=== PATIENT | female | born 2000 | race Caucasian/White ===

== ENCOUNTER 2020-10-11 15:09 | Emergency (ER) | payer MEDICAID ==
[2020-10-11 15:37] LABS: BILIRUBIN,URINE NEGATIVE (NEGATIVE); CLARITY,URINE CLEAR (CLEAR); GLUCOSE, URINE (UA) NEGATIVE (NEGATIVE); KETONES,URINE (UA) NEGATIVE (NEGATIVE); LEUKOCYTE ESTERASE, URINE SMALL (NEGATIVE); NITRITE,URINE POSITIVE (NEGATIVE); OCCULT BLOOD,URINE NEGATIVE (NEGATIVE); PROTEIN,URINE NEGATIVE (NEGATIVE); UROBILINOGEN,URINE 0.2 (NORMAL) E.U./dL (NORMAL)
[2020-10-11 15:43] LABS: BACTERIA,URINE Moderate /HPF (None Seen); RBC,URINE None Seen /HPF (0-5); SQUAMOUS EPITHELIAL CELL,UR RARE Squamous (<= Few)
--- NOTE | 2020-10-11 15:44 | ED Physician Documentation ---
History of Present Illness - Stated complaint Stated Complaint: CRAMPING,SOA,ROLDAN - Chief complaint Chief Complaint: Abd Pain - History obtained from History obtained from: Patient - History of Present Illness Timing: Today Pain level max: 5 Pain level now: 3 - Additonal information Additional information: 20-year-old female presents to the emergency department with lower abdominal pelvic cramping, worse on the left side. She states that she is about 6 to 7 weeks . Has her for a first OB appointment at the end of the week. She has increasing cramping. No bleeding. 2 para 0. Miscarried several years ago. No fevers. No chills. No back pain. No other abdominal pain. She does have a history of epilepsy, but is currently not on any medications. Nothing makes it better or worse. Review of Systems Constitutional: denies: Fever, Chills Respiratory: denies: Cough GI: denies: Vomiting, Diarrhea : denies: Dysuria, Frequency, Hesitancy Skin: denies: Rash Musculoskeletal: denies: Neck pain, Back pain Neurologic: denies: Headache PD PAST MEDICAL HISTORY - Past Medical History Past Medical History: Yes Neuro: Seizure disorder - Present Medications Home Medications: Ambulatory Orders Medication Instructions Recorded Confirmed Cefpodoxime Proxetil [Vantin] 100 mg PO Q12H #10 tablet 10/11/20 - Allergies Allergies/Adverse Reactions: Allergies Allergy/AdvReac Type Severity Reaction Status Date / Time No Known Drug Allergies Allergy Verified 10/11/20 15:24 PD ED PE NORMAL - Vitals Vital signs reviewed: Yes - General General: Alert and oriented X 3, No acute distress - HEENT HEENT: Atraumatic, PERRL, Moist mucous membranes - Neck Neck: Supple, no meningeal sign - Cardiac Cardiac: RRR - Respiratory Respiratory: No respiratory distress, Clear bilaterally - Abdomen Abdomen: Soft, Non tender, Non distended - Female Female : Pt declined - Back Back: No CVA TTP - Derm Derm: Warm and dry, No rash - Extremities Extremities: No edema, No calf tenderness / cord - Neuro Neuro: Alert and oriented X 3 - Psych Psych: Normal mood, Normal affect Results - Vitals Vitals: Vital Signs - 24 hr 10/11/20 10/11/20 10/11/20 15:20 16:24 17:27 Temperature 36.4 C L 37.1 C 36.7 C Heart Rate 76 74 84 Respiratory 16 20 18 Rate Blood Pressure 127/68 107/76 108/60 O2 Saturation 100 100 100 Oxygen O2 Source Room air - Labs Labs: Laboratory Tests 10/11/20 10/11/20 10/11/20 15:25 15:35 15:35 WBC 12.1 H RBC 4.48 Hgb 13.8 Hct 41.1 MCV 91.7 MCH 30.8 MCHC 33.6 RDW 12.3 Plt Count 345 MPV 9.5 Neut # (Auto) 8.0 H Lymph # (Auto) 3.3 [place] # (Auto) 0.7 Eos # (Auto) 0.1 Baso # (Auto) 0.1 Absolute Nucleated RBC 0.00 Nucleated RBC % 0.0 Sodium Potassium Chloride Carbon Dioxide Anion Gap BUN Creatinine Estimated GFR (MDRD) Glucose Calcium Total Bilirubin AST ALT Alkaline Phosphatase Total Protein Albumin Globulin Albumin/Globulin Ratio Lipase HCG, Quant Urine Color YELLOW Urine Clarity CLEAR Urine pH 7.0 Ur Specific [place] 1.020 Urine Protein NEGATIVE Urine Glucose (UA) NEGATIVE Urine Ketones NEGATIVE Urine Occult Blood NEGATIVE Urine Nitrite POSITIVE H Urine Bilirubin NEGATIVE Urine Urobilinogen 0.2 (NORMAL) Ur Leukocyte Esterase SMALL H Urine RBC None Seen Urine WBC 0-3 Ur Squamous Epith Cells RARE Squamous Urine Bacteria Moderate H Ur Microscopic Review INDICATED Urine Culture Comments INDICATED Blood Type A POSITIVE 10/11/20 10/11/20 15:35 15:35 WBC RBC Hgb Hct MCV MCH MCHC RDW Plt Count MPV Neut # (Auto) Lymph # (Auto) [place] # (Auto) Eos # (Auto) Baso # (Auto) Absolute Nucleated RBC Nucleated RBC % Sodium 138 Potassium 3.6 Chloride 102 Carbon Dioxide 27 Anion Gap 9.0 BUN 11 Creatinine 0.7 Estimated GFR (MDRD) 106 Glucose 87 Calcium 9.5 Total Bilirubin 0.4 AST 15 ALT 25 Alkaline Phosphatase 55 Total Protein 7.3 Albumin 4.0 Globulin 3.3 Albumin/Globulin Ratio 1.2 Lipase 28 HCG, Quant 40637.00 Urine Color Urine Clarity Urine pH Ur Specific [place] Urine Protein Urine Glucose (UA) Urine Ketones Urine Occult Blood Urine Nitrite Urine Bilirubin Urine Urobilinogen Ur Leukocyte Esterase Urine RBC Urine WBC Ur Squamous Epith Cells Urine Bacteria Ur Microscopic Review Urine Culture Comments Blood Type - Rads (name of study) OB US Radiology: Prelim report reviewed, EMP read contemporaneously, See rad report PD MEDICAL DECISION MAKING - ED course Complexity details: reviewed results, re-evaluated patient, considered differential, d/w patient ED course: 20-year-old female presents to the emergency department with lower abdominal pain. Approximately 6 weeks . She is not having vaginal bleeding. Does have a UTI and we will treat her for this. Has a single living IUP. Has an appoint with OB on Sunday. No other acute findings on laboratory testing. Blood type a positive. Patient counseled regarding signs and symptoms for which I believe and urgent re-evaluation would be necessary. Patient with good understanding of and agreement to plan and is comfortable going home at this time This document was made in part using voice recognition software. While efforts are made to proofread this document, sound alike and grammatical errors may occur. IMPRESSION: 1. Single living intrauterine with sinus gestational age of 6 weeks 1 day corresponding to ultrasound HOLDEN of 06/05/2021. 2. Small right corpus luteal cyst. 3. Small subchorionic bleed. Departure - Departure Disposition: 01 Home, Self Care Clinical Impression: Qualifiers: Weeks of gestation: less than 8 weeks Qualified Code(s): Z3A.01 - Less than 8 weeks gestation of UTI (urinary tract infection) Qualifiers: Urinary tract infection type: acute cystitis Hematuria presence: without hematuria Qualified Code(s): N30.00 - Acute cystitis without hematuria Condition: Good Instructions: ED Care, ED UTI Cystitis Female Follow-Up: your,OB on Sunday [Other] Prescriptions: Cefpodoxime Proxetil [Vantin] 100 mg PO Q12H #10 tablet Comments: Take all antibiotics until gone. Return if you worsen. Your hCG is 55,700 today. This can be tracked and followed with your doctor. Your ultrasound does not show any acute abnormalities. You are around 6 weeks currently. Discharge Date/Time: 10/11/20 17:31
[2020-10-11 15:45] LABS: BASOPHILS # (AUTO) 0.1 10^3/uL (0.0-0.1); BASOPHILS % (AUTO) 0.5 %; EOSINOPHILS # (AUTO) 0.1 10^3/uL (0.0-0.7); EOSINOPHILS % (AUTO) 0.5 %; HGB - HEMOGLOBIN 13.8 g/dL (12.0-16.0); LYMPHOCYTES # (AUTO) 3.3 10^3/uL (1.5-3.5); LYMPHOCYTES % (AUTO) 27.1 %; MEAN CORPUSCULAR HEMOGLOBIN 30.8 pg (27.0-31.0); MEAN CORPUSCULAR HGB CONC 33.6 g/dL (32.0-36.0); MEAN CORPUSCULAR VOLUME 91.7 fL (81.0-99.0); MEAN PLATELET VOLUME 9.5 fL (7.9-10.8); MONOCYTES # (AUTO) 0.7 10^3/uL (0.0-1.0); MONOCYTES % (AUTO) 5.4 %; NEUTROPHILS % (AUTO) 66.3 %; PLT - PLATELET COUNT 345 10^3/uL (130-450); RED BLOOD COUNT 4.48 10^6/uL (4.20-5.40); RED CELL DISTRIBUTION WIDTH 12.3 % (12.0-15.0); WHITE BLOOD COUNT 12.1 x10^3/uL (4.8-10.8)
[2020-10-11 15:59] LABS: ALBUMIN/GLOBULIN RATIO 1.2 (1.0-2.2); BILIRUBIN,TOTAL 0.4 mg/dL (0.2-1.0); CALCIUM 9.5 mg/dL (8.5-10.3); CREATININE 0.7 mg/dL (0.4-1.0); TOTAL PROTEIN 7.3 g/dL (6.7-8.2)
[2020-10-11 17:28] VITALS: BP 108/60
--- NOTE | 2020-10-11 17:52 | Ultrasound Report ---
PROCEDURE: OB First Trimester w/TV INDICATIONS: pelvic pain, 6 weeks preg OUTSIDE/PRIOR DATING DATA: Last menstrual period (LMP): Not known. LMP-based estimated date of delivery (HOLDEN): Not applicable. First dating scan (date and location): 10/11/2020. Estimated date of delivery (HOLDEN) from first dating scan: 06/05/2021. TECHNIQUE: Real-time scanning was performed of the fetus and maternal pelvic organs, with image documentation. Endovaginal scanning was also performed to better visualize the fetus and maternal ovaries. COMPARISON: None FINDINGS: Embryo: Single living intrauterine gestation is identified. pole and yolk sac are identified. [place]-rump length measures 0.4 cm corresponding to ultrasound estimated gestational age of 6 weeks 1 day. heart rate measured at 121 bpm. Small 0.7 x 0.4 x 0.7 cm subchorionic/riley-implantation of bleed identified. Measurement variability in dating: +/- 4 weeks by LMP, +/- 7 days by mean sac diameter (use before 6 weeks gestation if crown-rump length not able to be measured), +/- 5 days by crown-rump length (6-12 weeks gestation). Maternal organs: Maternal cervix is closed. Small right corpus luteal cyst. Left ovary is sonographic ally normal. IMPRESSION: 1. Single living intrauterine with sinus gestational age of 6 weeks 1 day corresponding to ultrasound HOLDEN of 06/05/2021. 2. Small right corpus luteal cyst. 3. Small subchorionic bleed. Reviewed by: Vandana Monteiro MD, PhD on 10/11/2020 4:50 PM AKST Approved by: Vandana Monteiro MD, PhD on 10/11/2020 4:50 PM AKST Station ID: [id number]
== END 2020-10-11 17:31 | disposition home or self-care (01) ==
LOC: ED 15:09
DX: O23.11 Infections of bladder in pregnancy, first trimester (principal); Z3A.01 Less than 8 weeks gestation of pregnancy
CPT/HCPCS: 36415; 80053; 81001; 81003; 83690; 84702; 85025; 86900; 86901; 87077; 87086; 87181; 99284

== ENCOUNTER 2020-10-21 16:46 | Outpatient (CLI) | payer MEDICAID ==
--- NOTE | 2020-10-22 10:47 | Ultrasound Report ---
PROCEDURE: OB First Trimester w/TV INDICATIONS: SUPERVISION OF NORMAL OUTSIDE/PRIOR DATING DATA: Last menstrual period (LMP): 10/08/2019. LMP-based estimated date of delivery (HOLDEN): 05/15/2021. First dating scan (date and location): 10/11/2020. Estimated date of delivery (HOLDEN) from first dating scan: 06/05/2021. It is noted 06/05/2021 is consider ed the due date by the ordering provider.. TECHNIQUE: Real-time scanning was performed of the fetus and maternal pelvic organs, with image documentation. Endovaginal scanning was also performed to better visualize the fetus and maternal ovaries. COMPARISON: OB ultrasound 10/11/2020 FINDINGS: Embryo: Single living is identified with crown-rump length measuring 1.3 cm corresponding to 7 weeks 4 days compared to 7 weeks 4 days from initial ultrasound.. Heart rate is identified at 16 4 bpm. Small focus of subchorionic hemorrhage is noted measuring 1.4 x 1.0 cm. Measurement variability in dating: +/- 4 weeks by LMP, +/- 7 days by mean sac diameter (use before 6 weeks gestation if crown-rump length not able to be measured), +/- 5 days by crown-rump length (6-12 weeks gestation). Maternal organs: Ovaries demonstrate a right corpus luteal cyst. IMPRESSION: 1. Single live intrauterine measuring 7 weeks 4 days. 2. Small subchorionic hemorrhage. Reviewed by: Mable Cramer MD on 10/22/2020 10:46 AM PST Approved by: Mable Cramer MD on 10/22/2020 10:46 AM PST Station ID: [id number]
== END 2020-10-21 16:47 | disposition home or self-care (01) ==
LOC: DI 16:46
PROVIDERS: ATTEND Nurse Practitioner Obstetrics & Gynecology
DX: O20.8 Other hemorrhage in early pregnancy (principal); Z3A.01 Less than 8 weeks gestation of pregnancy

== ENCOUNTER 2020-10-27 08:00 | Outpatient (CLI) | payer MEDICAID ==
[2020-10-27 12:49] LABS: MUDS CUTOFF CONCENTRATIONS CUTOFF CONC BELOW:
[2020-10-27 13:02] LABS: BILIRUBIN,URINE NEGATIVE (NEGATIVE); GLUCOSE, URINE (UA) NEGATIVE (NEGATIVE); KETONES,URINE (UA) NEGATIVE (NEGATIVE); LEUKOCYTE ESTERASE, URINE SMALL (NEGATIVE); NITRITE,URINE NEGATIVE (NEGATIVE); OCCULT BLOOD,URINE NEGATIVE (NEGATIVE); PROTEIN,URINE NEGATIVE (NEGATIVE); UROBILINOGEN,URINE 0.2 (NORMAL) E.U./dL (NORMAL)
[2020-10-27 13:07] LABS: CLARITY,URINE CLEAR (CLEAR)
[2020-10-27 13:15] LABS: BACTERIA,URINE Few /HPF (None Seen); RBC,URINE 0-5 /HPF (0-5); SQUAMOUS EPITHELIAL CELL,UR MOD Squamous (<= Few)
[2020-10-27 13:27] LABS: AMPHETAMINE SCREEN,URINE NEGATIVE (NEGATIVE); BENZODIAZEPINES SCREEN, URINE NEGATIVE (NEGATIVE); COCAINE SCREEN URINE NEGATIVE (NEGATIVE); METHADONE SCREEN, URINE NEGATIVE (NEGATIVE); METHAMPHETAMINES SCREEN, URINE NEGATIVE (NEGATIVE); OPIATE SCREEN, URINE NEGATIVE (NEGATIVE); OXYCODONE SCREEN, URINE NEGATIVE (NEGATIVE); PROPOXYPHENE SCREEN, URINE NEGATIVE (NEGATIVE); TRICYCLIC ANTIDEPRESSANT,URINE NEGATIVE (NEGATIVE)
== END 2020-10-27 23:59 | disposition home or self-care (01) ==
LOC: LAB.R 08:00
PROVIDERS: ATTEND Obstetrics & Gynecology
DX: Z36.89 Encounter for other specified antenatal screening (principal)
CPT/HCPCS: 80306; 81001; 87086

== ENCOUNTER 2021-02-09 21:47 | Outpatient (CLI) | payer MEDICAID ==
[2021-02-09 22:53] VITALS: BP 124/78
--- NOTE | 2021-02-10 08:32 | PROVIDER PROGRESS NOTE ---
- HPI Chief Complaint: Decreased movement Current : Current [facility] 06/05/21 Gestation 23 Weeks and 3 Days 3 Para 0 Vital Signs Temperature 36.8 C 02/09/21 22:52 Heart Rate 78 02/09/21 22:52 Respiratory Rate 18 02/09/21 22:52 Blood Pressure 124/78 02/09/21 22:52 O2 Saturation 98 02/09/21 22:52 Temperature 36.8 C 02/09/21 22:52 Heart Rate 78 02/09/21 22:52 Respiratory Rate 18 02/09/21 22:52 Blood Pressure 124/78 02/09/21 22:52 O2 Saturation 98 02/09/21 22:52 - Plan Plan: Pt evaluated face to face Nataly is a 21yo @ 20wks gestation who presents to [facility] with c/o decreased movement. She states she has been feeling her baby move each night for the past several weeks but has been concerned over the past couple of days that she has not felt movement. She also reports right lower menstrual - like cramping which comes and goes. She states this has been happening since the beginning of and is exacerbated by position changes. She also noted a small amount of spotting after intercourse yesterday which was pink and has since resolved. She states it is not the cramping or the spotting that brought her in, but rather the anxiety related to not feeling her baby move recently. She was initially a patient of [facility] but her care has been transferred to secondary to her epilepsy. O: FHR 140s via bedside doppler. Heart RRR w/o M/G/R Lungs CTAB Abdomen gravid, soft, notender. Fundus @ U. Bilateral LE's no edema A: 21yo @ 20.1wks gestation by first trimester ultrasound Decreased movement, second trimester Round ligament pain P: Pt reports feeling very reassured. Reviewed warning s/sx and precautions and when to present. Will continue routine care at . Pt released home with precautions. Pt verbalized understanding and agrees to above plan. She denies further questions or concerns at this time. FINAL DIAGNOSIS: Decreased movement, second trimester
== END 2021-02-09 22:15 | disposition home or self-care (01) ==
LOC: WFO 21:47 → FBP 21:54 → WFO 22:15
PROVIDERS: ATTEND Obstetrics & Gynecology
DX: O36.8120 Decreased fetal movements, second trimester, not applicable or unspecified (principal); Z3A.20 20 weeks gestation of pregnancy; O99.891 Other specified diseases and conditions complicating pregnancy; R10.30 Lower abdominal pain, unspecified; O99.352 Diseases of the nervous system complicating pregnancy, second trimester; G40.909 Epilepsy, unspecified, not intractable, without status epilepticus
CPT/HCPCS: 99211

== ENCOUNTER 2021-06-08 20:07 | Emergency (ER) | payer MEDICAID ==
--- NOTE | 2021-06-08 20:38 | ED Physician Documentation ---
History of Present Illness - Stated complaint Stated Complaint: COVID TEST - Chief complaint Chief Complaint: General - History obtained from History obtained from: Patient - Additonal information Additional information: 21yF, unvaccinated against covid-19 p/w covid exposure (), who has had cough X 4-5 days. patient is asymptomatic, planning to isolate from and would like a covid test. Review of Systems Ten Systems: 10 systems reviewed and negative Constitutional: denies: Fever, Chills, Myalgias Nose: denies: Rhinorrhea / runny nose Throat: denies: Sore throat Cardiac: denies: Chest pain / pressure Respiratory: denies: Dyspnea, Cough PD PAST MEDICAL HISTORY - Past Medical History Neuro: Seizure disorder - Past Surgical History Past Surgical History: No - Present Medications Home Medications: Ambulatory Orders Medication Instructions Recorded Confirmed Cefpodoxime Proxetil [Vantin] 100 mg PO Q12H #10 tablet 10/11/20 - Allergies Allergies/Adverse Reactions: Allergies Allergy/AdvReac Type Severity Reaction Status Date / Time No Known Drug Allergies Allergy Verified 06/08/21 20:29 - Social History Does the pt smoke?: No Smoking Status: Never smoker Does the pt drink ETOH?: Yes Does the pt have substance abuse?: No - Immunizations Immunizations are current?: Yes - POLST Patient has POLST: No PD ED PE NORMAL - Vitals Vital signs reviewed: Yes - General General: Alert and oriented X 3, No acute distress, Well developed/nourished - HEENT HEENT: Atraumatic, PERRL, EOMI, Moist mucous membranes - Neck Neck: Supple, no meningeal sign - Cardiac Cardiac: RRR - Respiratory Respiratory: No respiratory distress, Clear bilaterally - Derm Derm: Normal color, Warm and dry - Extremities Extremities: No deformity - Neuro Neuro: Alert and oriented X 3 - Psych Psych: Normal mood, Normal affect Results - Vitals Vitals: Vital Signs - 24 hr 06/08/21 20:29 Temperature 36.7 C Heart Rate 74 Respiratory 18 Rate O2 Saturation 99 Oxygen O2 Source Room air PD MEDICAL DECISION MAKING - ED course ED course: 21-year-old woman, unvaccinated against COVID-19, presents requesting a Covid test after Covid exposure. Education given and return precautions given. Swab obtained. Patient will isolate until results are back. Departure - Departure Disposition: 01 Home, Self Care Clinical Impression: Exposure to COVID-19 virus Condition: Good Instructions: COVID-19 [facility], COVID-[address] [facility] Department Statement Comments: You are seen in the emergency department after COVID-19 exposure. A Covid swab was sent that will result in 2 to 3 days. You can view the results on your patient health portal. We will call you if the result is positive. Make sure that you quarantine until the result comes back. You should get re-tested if you develop any symptoms of COVID-19 like cough, vomiting, or diarrhea, since initial test results can come back negative for people who have asymptomatic covid-19. Please return to the emergency department if you develop severe shortness of breath or if you have any other concerns. Plan to follow-up with your primary doctor via telehealth.
== END 2021-06-08 20:52 | disposition home or self-care (01) ==
LOC: ED 20:07
DX: Z03.818 Encounter for observation for suspected exposure to other biological agents ruled out (principal)
CPT/HCPCS: 99281; 99283